=== PATIENT | female | born 1975 | race Caucasian/White ===

== ENCOUNTER 2016-06-15 12:09 | Day surgery (SDC) | payer OTHER ==
[2016-06-15] MEDS ORDERED: LACTATED RINGERS 1,000 ML IV ONE ×2 (12:43→14:40)
[2016-06-15] MEDS ORDERED: fentaNYL 250 MCG/5 ML VIAL IVP ONE ×2 (14:17)
[2016-06-15] MEDS ORDERED: MIDAZOLAM 2 MG/2 ML VIAL IVP ONE ×2 (14:17)
[2016-06-15] MEDS ORDERED: SIMETHICONE 40 MG/0.6 ML 30 ML BOTTLE PO ONE (14:21)
== END 2016-06-15 12:10 | disposition home or self-care (01) ==
PROC: 0DBE8ZX Excision of Large Intestine, Via Natural or Artificial Opening Endoscopic, Diagnostic (ICD-10-PCS; principal; 2016-06-15 13:30)
DX: R10.12 Left upper quadrant pain (principal); R19.4 Change in bowel habit
CPT/HCPCS: 45380; 81025; A9270; J3010; J7120